=== PATIENT | male | born 1965 ===

== ENCOUNTER 2024-10-05 11:01 | Inpatient (IN) | payer OTHER ==
[~2024-10-05] VITALS: Ht 373.4 cm; Wt 70.3 kg
[2024-10-05] MEDS ORDERED: TOPROL XL25 M1 PO (11:15)
[2024-10-05] MEDS ORDERED: METFORMIN HCL500 M3 (11:15)
[2024-10-05] MEDS ORDERED: ECOTRIN81 MG PO (11:17)
[2024-10-05] MEDS ORDERED: LEVO-T25 MCG PO (11:17)
[2024-10-05] MEDS ORDERED: CRESTOR40 MG PO (11:17)
[2024-10-05] MEDS ORDERED: OMEGA-31000 MG PO (11:18)
[2024-10-05] MEDS ORDERED: PROTONIX20 MG (11:18)
[2024-10-05 11:22] VITALS: BP 149/78
[2024-10-08] MEDS ORDERED: CEFAZOLIN SODIUM 1,000 MG VIAL IV ONE (08:15)
[2024-10-08] MEDS ORDERED: DEXAMETHASONE SODIUM PHOSPHATE 4 MG/ML VIAL IV ONE (08:15)
[2024-10-08] MEDS ORDERED: ENALAPRILAT DIHYDRATE 1.25 MG/ML VIAL IV PRN (09:15)
[2024-10-08] MEDS ORDERED: ONDANSETRON HCL 2 MG/ML VIAL IV PRN (09:15)
[2024-10-08] MEDS ORDERED: INSULIN LISPRO 1,000 UNIT/10 ML UNITS SUBCUTANEO PRN (09:30)
[2024-10-08] MEDS ORDERED: DEXTROSE 50 % IN WATER 0.5 G/ML DISP.SYRIN IV PRN (09:30)
[2024-10-08] MEDS ORDERED: MORPHINE SULFATE 4 MG/ML VIAL IV ONE ×2 (10:15→11:15)
[2024-10-08] MEDS ORDERED: CYCLOBENZAPRINE HCL 5 MG TABLET PO SCH (17:00)
[2024-10-08] MEDS ORDERED: ACETAMINOPHEN 500 MG GEL..CAP PO SCH (17:00)
[2024-10-08] MEDS ORDERED: DIPHENHYDRAMINE HCL 37.5 MG,LIDOCAINE HCL 15 ML,MAG HYDROX/ALUMINUM HYD/SIMETH 15 ML PO SCH (17:00)
[2024-10-08] MEDS ORDERED: TRAMADOL HCL 50 MG TABLET PO SCH (17:00)
[2024-10-08] MEDS ORDERED: PANTOPRAZOLE SODIUM 40 MG/VIAL VIAL IV PUSH SCH (21:00)
[2024-10-08 21:10] VITALS: BP 146/83; O2SAT 97
[2024-10-09 01:32] VITALS: BP 116/68; O2SAT 97
[2024-10-09] MEDS ORDERED: LEVOTHYROXINE SODIUM 25 MCG TABLET PO SCH (06:00)
[2024-10-09 08:15] VITALS: BP 137/78; O2SAT 95
[2024-10-09] MEDS ORDERED: METOPROLOL SUCCINATE 25 MG TAB.SR.24H PO SCH (09:00)
== END 2024-10-09 13:59 | disposition home or self-care (01) | DRG 627 ==
LOC: O/R 10-08 10:29 → SURH 10-08 11:45 → SURG 10-08 15:25
PROVIDERS: ADMIT Surgery; ATTEND Surgery
PROC: 0GTN0ZZ Resection of Right Inferior Parathyroid Gland, Open Approach (ICD-10-PCS; principal; 2024-10-08 13:00)
DX: D35.1 Benign neoplasm of parathyroid gland (principal); E21.0 Primary hyperparathyroidism